=== PATIENT | female | born 1985 | race Caucasian/White ===

== ENCOUNTER 2017-10-23 23:53 | Emergency (ER) | payer BC ==
[2017-10-24 02:23] VITALS: BP 0/0
== END 2017-10-24 01:05 | disposition left against medical advice (07) ==
LOC: ED 23:53
DX: R05 Cough (principal); Z53.21 Procedure and treatment not carried out due to patient leaving prior to being seen by health care provider

== ENCOUNTER 2019-10-23 17:02 | Emergency (ER) | payer BC, OTHER ==
--- NOTE | 2019-10-23 17:15 | ED ---
Syncope/Near Syncope - HPI Summary HPI Summary: Patient is a 34 y/o F presenting to the ED for a chief complaint of pre- syncope. Patient is present with her . Patient reports that she had palpitations at work around 15:45 on 10/23/19 when she became lightheaded and felt she would have a syncopal episode after bending down. She stood up and continued to feel palpitations, which lasted for 1 minute before resolving. She describes the palpitations are being loud in her throat. She notes being flushed after the episode. She has had a general feeling of being unwell for the last week. Currently, she complains of chest tightness. Patient denies vomiting. She denies taking any recent long distance trips. PMHx is significant for IBS. FMHx is significant for cardiac disease. Patient denies tobacco use. - History Of Current Complaint Time Seen by Provider: 10/23/19 17:07 Hx Obtained From: Patient Onset/Duration: Sudden Onset, Still Present Timing: Constant Activity At Onset: At Rest Aggravating Factor(s): Position Change Alleviating Factor(s): Spontaneous Resolution Associated Signs And Symptoms: Chest Pain - Tightness, Lightheadedness, Palpitations - Resolved - Allergies/Home Medications Allergies/Adverse Reactions: Allergies Allergy/AdvReac Type Severity Reaction Status Date / Time aspirin Allergy See Comment Verified 01/04/18 12:26 Penicillins Allergy See Comment Verified 01/04/18 12:26 PMH/Surg Hx/FS Hx/Imm Hx Previously Healthy: Yes Endocrine/Hematology History: Denies: Hx Diabetes, Hx Thyroid Disease Cardiovascular History: Denies: Hx Hypertension Respiratory History: Denies: Hx Asthma, Hx Chronic Obstructive Pulmonary Disease (COPD) GI History: Reports: Hx Irritable Bowel Denies: Hx Ulcer Sensory History: Denies: Hx Legally Blind, Hx Deafness Opthamlomology History: Denies: Hx Legally Blind EENT History: Denies: Hx Deafness - Surgical History Surgical History: None Surgery Procedure, Year, and Place: None Infectious Disease History: No Infectious Disease History: Denies: Hx Clostridium Difficile, Hx Hepatitis, Hx Human Immunodeficiency Virus (HIV), Hx of Known/Suspected MRSA, Hx Shingles, Hx Tuberculosis, Hx Known/ Suspected VRE, Hx Known/Suspected VRSA, History Other Infectious Disease - Family History Known Family History: Positive: Cardiac Disease - Social History Occupation: Employed Full-time Lives: With Family Alcohol Use: Rare Alcohol Amount: 2 month Hx Substance Use: No Substance Use Type: Reports: None Hx Tobacco Use: No Smoking Status (MU): Never Smoked Tobacco Have You Smoked in the Last Year: No Review of Systems Positive: Palpitations - Resolved, Chest Pain - Tightness Negative: Vomiting Neurological: Other - Positive pre-syncope and lightheadedness All Other Systems Reviewed And Are Negative: Yes Physical Exam - Summary Physical Exam Summary: Constitutional: Well-developed, Well-nourished, Alert. (-) Distressed Skin: Warm, Dry HENT: Normocephalic; Atraumatic Eyes: Conjunctiva normal Neck: Musculoskeletal ROM normal neck. (-) JVD, (-) Stridor, (-) Nuchal rigidity Cardio: Rhythm regular, Tachycardic, Heart sounds normal; Intact distal pulses; Radial pulses are 2+ and symmetric. (-) Murmur Pulmonary/Chest wall: Effort normal. (-) Respiratory distress, (-) Wheezes, (-) Rales Abd: Soft, (-) tenderness, (-) Distension, (-) Guarding, (-) Rebound Musculoskeletal: (-) Edema Lymph: (-) Cervical adenopathy Neuro: Alert, Oriented x3 Psych: Mood and affect Normal Triage Information Reviewed: Yes Vital Signs Reviewed: Yes Procedures - Sedation Patient Received Moderate/Deep Sedation with Procedure: No Diagnostics - Laboratory Result Diagrams: 10/23/19 17:28 10/23/19 17:28 Lab Statement: Any lab studies that have been ordered have been reviewed, and results considered in the medical decision making process. - EKG 17:11 Cardiac Rate: NL - 82 BPM EKG Rhythm: Sinus Rhythm ST Segment: Normal Ectopy: None Summary of EKG Findings: An EKG at 17:11 reveals normal sinus rhythm with 82 BPM , T wave inversions in V1 and V2, nml axis, nml intervals. No STEMI. No acute changes. No change from prior EKG. ED physician has reviewed and interpreted this EKG. Course/Dx Course Of Treatment: 34 y/o F p/w near syncope. - reporting palpitations. near syncope differential diagnosis includes: most likely vasovagal given reports of bending down then standing up with symptoms. Cardiac causes - will check EKG, get orthostatics. D dimer neg do not suspect PE. Neg HCG, do not suspect ectopic. Electrolyte disturbances - will check CMP (K 3.3, repleted). Anemia - will check CBC (stable hb). Orthostatic VS: unremarkable. Given IVF. Did have recent diarrheal episode which could be contributing to symptoms - Diagnoses Provider Diagnoses: Near syncope, Palpitations, Lightheadedness Discharge ED - Sign-Out/Discharge Documenting (check all that apply): Patient Departure - Discharge - Discharge Plan Condition: Stable Disposition: HOME Patient Education Materials: Near Syncope (ED) Referrals: Melissa Ruby NP [Nurse Practitioner] - Additional Instructions: You were seen in the emergency department for near syncope. Your labs did not show any abnormalities. Please drink lots of fluids. Please follow up with your primary care doctor in next 2-3 days and return to emergency department for passing out, chest pain, trouble breathing, worsening or concerning symptoms. It was a pleasure taking care of you today. - Billing Disposition and Condition Condition: STABLE Disposition: Home - Attestation Statements Document Initiated by Scribe: Yes Documenting Scribe: Essence Cardoso Provider For Whom Den is Documenting (Include Credential): Vani Lemos MD Scribe Attestation: I, Essence Cardoso, scribed for Vani Lemos MD on 10/23/19 at 1917. Scribe Documentation Reviewed: Yes Provider Attestation: The documentation as recorded by the Essence sky accurately reflects the service I personally performed and the decisions made by me, Vani Lemos MD Status of Scribe Document: Viewed
[2019-10-23] MEDS ORDERED: NS 0.9% 1000 ML** 1,000 ML IV ONE (17:20)
[2019-10-23 17:43] LABS: ABS Basophils 0.1 10^3/ul (0-0.2); ABS Eosinophils 0.1 10^3/ul (0-0.6); ABS Lymphocytes 2.4 10^3/ul (1.0-4.8); ABS Monocytes 0.4 10^3/ul (0-0.8); ABS Neutrophils 4.4 10^3/ul (1.5-7.7); Hematocrit 41 % (35-47); Hemoglobin 14.2 g/dL (12.0-16.0); Lymphocyte % 31.9 %; Mean Corpuscular HGB Conc 35 g/dL (31-36); Mean Corpuscular Hemoglobin 31 pg (27-31); Mean Corpuscular Volume 89 fL (80-97); Mean Platelet Volume 7.4 fL (7.4-10.4); Platelet Count 233 10^3/uL (150-450); Red Blood Count 4.57 10^6 /uL (3.70-4.87); Red Cell Distribution Width 13 % (10-15); White Blood Count 7.4 10^3/uL (3.5-10.8)
[2019-10-23 18:01] LABS: ALT 15 U/L (7-52); AST 17 U/L (13-39); Albumin 4.8 g/dL (3.2-5.2); Albumin/Globulin Ratio 1.8 (1-3); Alkaline Phosphatase 37 U/L (34-104); Anion Gap 8 mmol/L (2-11); BUN/Creatinine Ratio 13.9 (8-20); Blood Urea Nitrogen 11 mg/dL (6-24); CO2 Carbon Dioxide 27 mmol/L (22-32); Calcium 9.3 mg/dL (8.6-10.3); Chloride 104 mmol/L (101-111); EGFR African American 101.4 (>60); EGFR Non-African American 83.8 (>60); Globulin 2.6 g/dL (2-4); Glucose 98 mg/dL (70-100); Potassium 3.2 mmol/L (3.5-5.0); Sodium 139 mmol/L (135-145); Total Protein 7.4 g/dL (6.4-8.9)
[2019-10-23 18:07] LABS: HCG Pregnancy < 0.60 mIU/mL
[2019-10-23] MEDS ORDERED: Potassium Chlor TAB* 20 MEQ TAB.ER PO ONE (18:23)
[2019-10-23 19:39] VITALS: BP 121/63
== END 2019-10-23 19:33 | disposition home or self-care (01) ==
LOC: ED 17:02
DX: R55 Syncope and collapse (principal); R00.2 Palpitations; R42 Dizziness and giddiness; R07.89 Other chest pain; Z88.6 Allergy status to analgesic agent; Z88.0 Allergy status to penicillin; Z32.02 Encounter for pregnancy test, result negative
CPT/HCPCS: 36415; 80053; 84702; 85025; 85379; 93005; 96360; 96361; 99282; A9270-GY

== ENCOUNTER 2021-03-17 18:12 | Inpatient (IN) ==
[2021-03-17] MEDS ORDERED: Buffered Lidocaine 1% SYRIN 1 ml INTRADERM ONE (19:38)
[2021-03-17] MEDS ORDERED: Lactated Ringers 1000 ml BAG 1,000 ML IV ONE (19:38)
[2021-03-17] MEDS ORDERED: Lactated Ringers 1000 ml BAG 1,000 ML IV SCH (20:00)
[2021-03-17 21:15] LABS: ABS Lymphocytes 2.1 10^3/ul (1.0-4.8); ABS Monocytes 0.6 10^3/ul (0-0.8); ABS Neutrophils 6.2 10^3/ul (1.5-7.7); Eosinophil % 0.5 %; Hematocrit 33 % (35-47); Hemoglobin 11.9 g/dL (12.0-16.0); Lymphocyte % 23.3 %; Mean Corpuscular HGB Conc 36 g/dL (31-36); Mean Corpuscular Hemoglobin 30 pg (27-31); Mean Corpuscular Volume 84 fL (80-97); Mean Platelet Volume 8.5 fL (7.4-10.4); Platelet Count 215 10^3/uL (150-450); Red Blood Count 3.97 10^6 /uL (3.70-4.87); Red Cell Distribution Width 16 % (10-15)
[2021-03-17 21:36] LABS: Urine Benzodiazepine Screen None Detected (None Detect); Urine Cannabinoids Screen None Detected (None Detect); Urine Opiates Screen None Detected (None Detect)
[2021-03-18] MEDS ORDERED: Dinoprostone 10 MG VAG.SUPP VAGINAL ONE (00:09)
[2021-03-18] MEDS ORDERED: Oxytocin in LR 20 UNITS/1,000 ML BAG IVPB ONE (13:54)
[2021-03-18] MEDS ORDERED: Oxytocin in LR 20 UNITS/1,000 ML BAG IVPB SCH (14:00)
[2021-03-18] MEDS ORDERED: Promethazine INJ(RESTRICTED) 25 MG/ML 1 ml VIAL IV ONE (20:44)
[2021-03-18] MEDS ORDERED: Morphine 2 MG/ML SYRINGE IV ONE (20:44)
[2021-03-19] MEDS ORDERED: OBEPIDURAL 250 ML EPIDURAL ONE (03:59)
[2021-03-19] MEDS: Phenylephrine 40 mcg/mL 10mL (400mcg) SYRINGE IV PUSH PRN ×2 (05:17→05:21)
[2021-03-19] MEDS ORDERED: Phenylephrine 40 mcg/mL 10mL (400mcg) SYRINGE IV PUSH PRN (05:32)
[2021-03-19] MEDS ORDERED: Lactated Ringers 1000 ml BAG 1,000 ML IV ONE (05:32)
[2021-03-19] MEDS ORDERED: Lactated Ringers 1000 ml BAG 500 ML IV PRN ×2 (05:32)
[2021-03-19] MEDS ORDERED: Sodium Citrate/Citric Acid LIQ 15 ML UDC PO PRN (05:32)
[2021-03-19 05:58] LABS: Urine Appearance Clear; Urine Bilirubin Negative (Negative); Urine Blood 1+ (Negative); Urine Color Straw; Urine Glucose Negative (Negative); Urine Ketones Negative (Negative); Urine Nitrite Negative (Negative); Urine Protein Negative (Negative); Urine Specific Gravity 1.003 (1.002-1.030); Urine Urobilinogen Negative (Negative)
[2021-03-19] MEDS ORDERED: OBEPIDURAL 250 ML EPIDURAL SCH (06:00)
[2021-03-19] MEDS ORDERED: Lactated Ringers 1000 ml BAG 1,000 ML IV SCH ×2 (06:00→18:00)
[2021-03-19 06:04] LABS: Urine Bacteria Absent (Absent); Urine Red Blood Cell Absent (Absent); Urine Squamous Epithelial Cell Present (Absent); Urine White Blood Cell Absent (Absent)
[2021-03-19] MEDS ORDERED: Ropivacaine (OR use only) 2 MG/ML 10 ML ONE (16:03)
[2021-03-19] MEDS ORDERED: Sodium Chloride 0.9% 0 ML ONE (16:03)
[2021-03-19] MEDS ORDERED: Chloroprocaine 3% 20 ml VIAL ONE (16:56)
[2021-03-19] MEDS ORDERED: Witch Hazel PAD JAR TOPICAL PRN (17:18)
[2021-03-19] MEDS ORDERED: Glycerin ADULT 2.4 gm SUPP PR PRN (17:18)
[2021-03-19] MEDS ORDERED: ceFOXitin 2 GM IVPREMIX 2 GM/50 ML BAG IVPB ONE (17:35)
[2021-03-19] MEDS ORDERED: Oxytocin in LR 20 UNITS/1,000 ML BAG IVPB SCH (18:00)
[2021-03-19] MEDS: Dibucaine 1% OINT 28.35 GM TUBE PR PRN (18:23)
[2021-03-19] MEDS ORDERED: Lidocaine 1% VIAL 10 MG/ML VIAL ONE (18:54)
[2021-03-19] MEDS ORDERED: Phenylephrine 40 mcg/mL 10mL (400mcg) SYRINGE ONE (18:54)
[2021-03-19 22:39] LABS: ABS Lymphocytes 1.2 10^3/ul (1.0-4.8); ABS Monocytes 0.7 10^3/ul (0-0.8); ABS Neutrophils 11.5 10^3/ul (1.5-7.7); Hematocrit 29 % (35-47); Hemoglobin 10.1 g/dL (12.0-16.0); Lymphocyte % 8.8 %; Mean Corpuscular HGB Conc 35 g/dL (31-36); Mean Corpuscular Hemoglobin 30 pg (27-31); Mean Corpuscular Volume 85 fL (80-97); Mean Platelet Volume 8.3 fL (7.4-10.4); Platelet Count 148 10^3/uL (150-450); Red Blood Count 3.35 10^6 /uL (3.70-4.87); Red Cell Distribution Width 16 % (10-15); White Blood Count 13.5 10^3/uL (3.5-10.8)
[2021-03-20] MEDS ORDERED: Ammonia Inhalant 1 EA AMP ONE (00:35)
[2021-03-20] MEDS: Butalb/Acetamin/Caff TAB 325-50-40MG PO PRN ×2 (01:13→07:38)
[2021-03-20 07:44] LABS: ABS Basophils 0.1 10^3/ul (0-0.2); ABS Eosinophils 0.1 10^3/ul (0-0.6); ABS Lymphocytes 2.2 10^3/ul (1.0-4.8); ABS Monocytes 0.7 10^3/ul (0-0.8); ABS Neutrophils 9.7 10^3/ul (1.5-7.7); Eosinophil % 0.4 %; Hematocrit 27 % (35-47); Hemoglobin 9.4 g/dL (12.0-16.0); Lymphocyte % 17.4 %; Mean Corpuscular HGB Conc 35 g/dL (31-36); Mean Corpuscular Hemoglobin 30 pg (27-31); Mean Corpuscular Volume 86 fL (80-97); Mean Platelet Volume 8.6 fL (7.4-10.4); Platelet Count 149 10^3/uL (150-450); Red Blood Count 3.18 10^6 /uL (3.70-4.87); Red Cell Distribution Width 16 % (10-15); White Blood Count 12.8 10^3/uL (3.5-10.8)
[2021-03-20] MEDS ORDERED: fentaNYL 100 mcg/2 ml 50 MCG/ML VIAL ONE (08:58)
[2021-03-20] MEDS: Dibucaine 1% OINT 28.35 GM TUBE PR PRN (19:44)
[2021-03-21 07:48] VITALS: BP 105/62
== END 2021-03-21 14:14 | disposition home or self-care (01) | DRG 807 ==
LOC: MCHOBOUT 18:12 → MCHOB 19:38
PROVIDERS: ADMIT Obstetrics & Gynecology; ATTEND Obstetrics & Gynecology